=== PATIENT | female | born 1975 | race Caucasian/White ===

== ENCOUNTER 2019-05-05 10:36 | Day surgery (SDC) | payer BC ==
[2019-05-05] MEDS ORDERED: LIDOCAINE 1% W/EPI 1:200,000 MPF 30ML SQ ONE (12:39)
--- NOTE | 2019-05-06 07:41 | Operative Note ---
DATE OF SURGERY: 05/05/2019 PREOPERATIVE DIAGNOSIS: Right carpal tunnel syndrome. POSTOPERATIVE DIAGNOSIS: Right carpal tunnel syndrome. OPERATION: Right carpal tunnel release. STAFF SURGEON: Oliver Cardozo MD ANESTHESIA: Local. PREPARATION: Chloraprep. INDIVIDUAL CONSIDERATIONS: None. PROCEDURE: The patient was taken to the operating room and placed supine on the operating room table. Her right arm was prepped and draped in the usual fashion. The limb was elevated. Tourniquet was inflated to 250 mmHg. The patient had 2% lidocaine with epinephrine infiltrated along the longitudinal wrist crease volarly. Sharp dissection carried down through skin and subcutaneous tissue through the palmar fascia, through the small adductor brevis and then carefully through the transverse metacarpal fascia distally to the superficial arch and recurrent branch and proximally the antebrachial fascia. The median nerve was obviously contused and hourglass. No tumors were present. Tourniquet was let down and hemostasis was obtained with a Bovie. After irrigation, the skin was approximated with interrupted 4-0 nylon in a vertical mattress fashion. A sterile bulky compressive hand dressing was applied. The patient tolerated procedure well and was taken back to recovery in good condition. There were no complications. [facility]
== END 2019-05-05 13:21 | disposition home or self-care (01) ==
LOC: SUR 10:36
PROVIDERS: ATTEND Orthopaedic Surgery
DX: G56.01 Carpal tunnel syndrome, right upper limb (principal)

== ENCOUNTER 2019-05-19 10:39 | Day surgery (SDC) | payer BC ==
[2019-05-19] MEDS ORDERED: LIDOCAINE 1% W/EPI 1:200,000 MPF 30ML SQ ONE ×2 (15:12)
--- NOTE | 2019-05-21 07:30 | Operative Note ---
DATE OF SURGERY: 05/19/2019 PREOPERATIVE DIAGNOSIS: Left carpal tunnel syndrome. POSTOPERATIVE DIAGNOSIS: Left carpal tunnel syndrome. OPERATION: Left carpal tunnel release. STAFF SURGEON: Oliver Cardozo MD ANESTHESIA: Local. PREPARATION: Chloraprep. INDIVIDUAL CONSIDERATIONS: None. PROCEDURE: The patient was taken to the operating room and placed supine on the operating room table. Her left arm was prepped and draped in the usual fashion. The patient's longitudinal wrist creas was infiltrated with 2% lidocaine with epinephrine prior. Incision was made along the longitudinal wrist crease and then just barely crossing at a 45-degree angle ulnarly. Prior to this, the limb was elevated. Tourniquet was inflated to 250 mmHg. Sharp dissection carried down through skin and subcutaneous tissues. Small veins were coagulated with a Bovie. Sharp dissection carried down through the palmar fascia through a very small adductor brevis and then through the transverse metacarpal fascia distally to the superficial arch and recurrent branch and proximally to the antebrachial fascia. The median nerve was obviously contused and hourglass but otherwise intact. No tumors were seen. Tourniquet was let down and hemostasis was obtained with a Bovie. After irrigation, the skin was approximated with multiple 4-0 nylon in a vertical mattress fashion. A sterile bulky compressive hand dressing was applied. The patient tolerated procedure well. Needle and sponge counts were correct. Estimated blood loss was minimal. She was taken back to recovery in good condition. There were no complications. [facility]
== END 2019-05-19 15:46 | disposition home or self-care (01) ==
LOC: SUR 10:39
PROVIDERS: ATTEND Orthopaedic Surgery
DX: G56.02 Carpal tunnel syndrome, left upper limb (principal)